=== PATIENT | male | born 1995 | race Caucasian/White ===

== ENCOUNTER → 2017-01-25 | Outpatient (CLI) | payer OTHER ==
[~2017-01-25] MED LIST: ELDCR/30 TOP; OPTIRAY 320 IV PRN; TBRDOPO TOP; TRMCR130WC TOP
--- NOTE | 2017-01-25 13:19 | DIAGNOSTIC IMAGING REPORT ---
CT maxillofacial region FACIAL BONES-MAXI LLO FAC COMBO CLINICAL HISTORY: Mass pain TECHNIQUE: Transaxial acquisition pre and postcontrast administration. Multi axial reformatted images COMPARISON STUDY: None FINDINGS: Destructive lesion between and posterior to the 2 anterior frontal incisors of the maxilla. It is slightly posterior to the roots of those structures with slight lateral splaying of the dental roots themselves. Maximum dimension of the soft tissue component is 1.6 x 1.0 cm. It appears show partial postcontrast enhancement. The remainder of the mandible and maxilla appear unremarkable. No additional lytic or blastic components are appreciated. Differential considerations including keratocystic odontoid tumor,, complex dentigerous cyst, versus fibroma or/or odontoma.. IMPRESSION: 1. Destructive partially enhancing lesion measuring 1.6 x 1.0 cm between and slightly posterior to the 2 central anterior frontal maxillary incisors. 2. Differential is as above, and includes odontogenic tumor, complex dentigerous cyst,, fibroma, and/or odontoma. 3. Study otherwise is unremarkable. Electronically signed by: Jose Griffin M.D. 01/25/2017 1:18 PM Dictated Date/Time: 01/25/2017 1:01 PM
== END | disposition home or self-care (01) ==
LOC: C.CTS 12:25
PROVIDERS: ATTEND Dentist Oral and Maxillofacial Surgery
DX: R22.0 Localized swelling, mass and lump, head (principal); M27.8 Other specified diseases of jaws

== ENCOUNTER → 2017-02-03 | Outpatient (CLI) | payer OTHER ==
[~2017-02-03] MED LIST changes: -OPTIRAY 320 IV PRN
== END | disposition home or self-care (01) ==
LOC: C.PATHSPEC 10:55
PROVIDERS: ATTEND Dentist Oral and Maxillofacial Surgery
DX: R22.0 Localized swelling, mass and lump, head (principal)

== ENCOUNTER → 2017-03-07 | Outpatient (CLI) | payer OTHER | END | disposition home or self-care (01) | LOC: C.LAB 11:38 | PROVIDERS: ATTEND Dentist Oral and Maxillofacial Surgery | DX: K13.4 Granuloma and granuloma-like lesions of oral mucosa (principal) ==